=== PATIENT | male | born 1950 | race Caucasian/White ===

== ENCOUNTER 2019-11-12 09:57 | Day surgery (SDC) | payer OTHER ==
[~2019-11-12 09:57] MED LIST: Lactated Ringers 1,000 ML IV SCH; Lidocaine 1%/Sod Bicarbonate in NS 8.4% 1 ML Syringe IDERM PRN; Sodium Chloride 0.9% 10 ML Syringe FLUSH PRN
[2019-11-12] MEDS ORDERED: fentaNYL 100 MCG/2 ML SDV ONE (09:59)
[2019-11-12] MEDS ORDERED: Midazolam 1 MG/ML 2 ML SDV ONE (09:59)
[2019-11-12] MEDS ORDERED: Propofol 200 MG/20 ML SDV ONE (09:59)
[2019-11-12] MEDS ORDERED: Lidocaine 1% 4 ML ONE (10:01)
[2019-11-12] MEDS ORDERED: Bupivacaine 0.5% 10 ML SDV ONE ×2 (10:04→11:12)
--- NOTE | 2019-11-12 10:34 | PCM.PREANE ---
Preanesthetic Assessment - Anesthesia/Transfusion/Family Hx Anesthesia History: Prior Anesthesia Without Reaction Transfusion History: No Prior Transfusion(s) - Review of Systems General: No Symptoms Pulmonary: No Symptoms Cardiovascular: No Symptoms Gastrointestinal: No Symptoms Neurological: No Symptoms Other: Reports: None - Physical Assessment NPO Status Date: 11/11/19 NPO Status Time: 03:00 Vital Signs: 142/75, HR 59, RR 16, SpO2 99% on RA ASA Class: 2 Mental Status: Alert & Oriented x3 Airway Class: Mallampati = 1 Dentition: Reports: Normal Dentition, [place](s), Bridge (on the front) Thyro-Mental Finger Breadths: 3 Mouth Opening Finger Breadths: 3 ROM/Head Extension: Full Lungs: Clear to Auscultation, Normal Respiratory Effort Cardiovascular: Regular Rate, Regular Rhythm - Lab Values: Laboratory Last Values SARS Virus RNA (PCR) Negative (NEGATIVE) 11/10/19 10:45 MRSA (PCR) Negative 11/03/19 13:13 - Allergies Allergies/Adverse Reactions: Allergies Allergy/AdvReac Type Severity Reaction Status Date / Time No Known Allergies Allergy Verified 11/11/19 15:44 - Acknowledgements Anesthesia Type Planned: Regional Block, MAC Pt an Appropriate Candidate for the Planned Anesthesia: Yes Alternatives and Risks of Anesthesia Discussed w Pt/Guardian: Yes Pt/Guardian Understands and Agrees with Anesthesia Plan: Yes PreAnesthesia Questionnaire HEENT History: Reports: Allergic Rhinitis, Impaired Vision, Sinusitis Cardiovascular History: Reports: Hypertension Respiratory History: Reports: Asthma Gastrointestinal History: Reports: Hemorrhoids Genitourinary History: Reports: BPH PAD HAND History: Reports: None Musculoskeletal History: Reports: Other (See Below) Other Musculoskeletal History: hallux valgus Neurological History: Reports: None Psychiatric History: Reports: None Endocrine/Metabolic History: Reports: None Hematologic History: Reports: None Immunologic History: Reports: None Oncologic (Cancer) History: Reports: None Dermatologic History: Reports: None - Infectious Disease History Infectious Disease History: Reports: None - Past Surgical History Head Surgeries/Procedures: Reports: None HEENT Surgical History: Reports: Naso-Sinus Surgery Cardiovascular Surgical History: Reports: None Respiratory Surgical History: Reports: None GI Surgical History: Reports: Colonoscopy, Hernia Repair/Other Female Surgical History: Reports: None Male Surgical History: Reports: None Endocrine Surgical History: Reports: None Neurological Surgical History: Reports: None Musculoskeletal Surgical History: Reports: Other (See Below) Other Musculoskeletal Surgeries/Procedures:: right foot surgery Oncologic Surgical History: Reports: None Dermatological Surgical History: Reports: None - SUBSTANCE USE Smoking Status *Q: Former Smoker Recreational Drug Use History: No - HOME MEDS Home Medications: Home Meds Cyanocobalamin (Vitamin B-12) [Vitamin B-12] 1,000 mcg PO DAILY 11/11/19 [ History] Fluticasone Propionate [Flonase] 1 dose NASBOTH DAILY PRN 11/11/19 [History] Saw [place] 160 mg PO DAILY 11/11/19 [History] Tamsulosin [Flomax] 0.4 mg PO DAILY 11/11/19 [History] Acetaminophen/HYDROcodone [[place] 325-5 MG] 1 - 2 tab PO Q6H PRN #30 tablet 11/11 [Rx] Aspirin 325 mg PO BID #84 tab 11/12/19 [Rx] - CURRENT (IN HOUSE) MEDS Current Meds: Current Medications Lactated Ringer's (Ringers, Lactated) 1,000 mls @ 125 mls/hr IV ASDIRECTED JUSTIN Stop: 11/12/19 23:00 Lidocaine/Sodium Bicarbonate (Buffered Lidocaine 1% In Ns 8.4%) 0.25 ml IDERM ONETIME PRN PRN Reason: Prior to IV Start Stop: 11/12/19 18:00 Sodium Chloride (Saline Flush) 10 ml FLUSH ASDIRECTED PRN PRN Reason: Keep Vein Open Stop: 11/12/19 18:00 Discontinued Medications Bupivacaine HCl (Sensorcaine-Mpf 0.5%) Confirm Administered Dose 10 ml .ROUTE .STK-MED ONE Stop: 11/12/19 10:05 Fentanyl (Sublimaze) Confirm Administered Dose 100 mcg .ROUTE .STK-MED ONE Stop: 11/12/19 10:00 Lidocaine HCl (Xylocaine-Mpf 1%) Confirm Administered Dose 4 mls @ as directed .ROUTE .STK-MED ONE Stop: 11/12/19 10:02 Midazolam HCl (Versed 1 Mg/Ml) Confirm Administered Dose 4 mg .ROUTE .STK-MED ONE Stop: 11/12/19 10:00 Propofol (Diprivan 20 Ml) Confirm Administered Dose 400 mg .ROUTE .STK-MED ONE Stop: 11/12/19 10:00
[2019-11-12] MEDS ORDERED: Bupivacaine 0.25% 10 ML SDV ONE (11:11)
[2019-11-12] MEDS ORDERED: ceFAZolin 1 GM Vial ONE (12:16)
[2019-11-12] MEDS ORDERED: Lactated Ringers 1,000 ML ONE (12:21)
--- NOTE | 2019-11-12 12:40 | PCM.PRNOTE ---
- Free Text/Narrative Note: Requested by Dr. Hugh Tijerina. Dx: Right Hallux rigidus. Surgical Procedure : Distal 1st metatarsal joint fusion Preoperative Treatment: Rt ankle block Patient received explanation about an ankle block, benefits and risks discussed , consent signed. Patient in preoperative area, monitors on, oxygen 2L via nasal cannula, semi-Suazo position, right foot supported by folded blankets a elevated position. Landmarks located and marked with skin marker. Time out done. Left fool cleaned with Chloraprep stick and allowed to dry. 2 mg of Midazolam given. 1st Injection performed behind medial malleolus at tibial nerve in fanning fashion with negative aspiration confirmed. 2nd injection between extensor hallucis longus and extensor digitorum longus tendons at deep peroneal nerve with negative aspiration confirmed. 3rd injection in the ring fashion infiltration at the dorsal surface of the foot at superficial peroneal nerve distribution. 4th injection above medial malleolus around the distribution of saphenous nerve. Additional injection has been performed lateral and medial to the 1st metatarsal bone. Total of 20 mls of 0.5% Bupivacaine PF has been used. Patient has tolerated the procedure well. No signs of local anesthetic systemic toxicity noted. Start 10:49 End 10:58
[2019-11-12] MEDS ORDERED: fentaNYL 100 MCG/2 ML SDV IVPUSH PRN (12:43)
[2019-11-12] MEDS ORDERED: HYDROmorphone 0.5 MG/0.5 ML Syringe IVPUSH PRN (12:43)
--- NOTE | 2019-11-12 13:39 | CR ---
Right 1st toe: 9 fluoroscopic spot views were obtained utilizing C-arm device of the right 1st toe. Study shows placement of plate and screws across the MTP joint of the right 1st toe. Fluoroscopy time is given as 15.5 seconds. Impression: 1. Procedural study as noted above. Diagnostic code #2 This report was dictated in MDT
--- NOTE | 2019-11-12 13:50 | PCM48HPAN ---
Post Anesthesia Note - EVALUATION WITHIN 48HRS OF ANESTHETIC Vital Signs in Normal Range: Yes Patient Participated in Evaluation: Yes Respiratory Function Stable: Yes Airway Patent: Yes Cardiovascular Function Stable: Yes Hydration Status Stable: Yes Pain Control Satisfactory: Yes Nausea and Vomiting Control Satisfactory: Yes Mental Status Recovered: Yes Vital Signs: Last Vital Signs Temp 98.4 F 11/12/19 13:36 Pulse 63 11/12/19 13:36 Resp 15 11/12/19 13:36 BP 114/61 11/12/19 13:36 Pulse Ox 97 11/12/19 13:36
--- NOTE | 2019-11-16 07:19 | PCM.OPNOTE ---
- General Post-Op/Procedure Note Date of Surgery/Procedure: 11/12/19 Operative Procedure(s): right first metatarsal phalangeal joint fusion with great toe exostectomy Pre Op Diagnosis: right foot hallux ragidus with bony exostoses Post-Op Diagnosis: Same Anesthesia Technique: Local, Regional Block Primary Surgeon: Hugh Hernandez Anesthesia Provider: [employer] Radiology Technician: Phuong Chapa EBL in mLs: 5 Complications: None Condition: Good
--- NOTE | 2019-11-17 12:03 | OR ---
DATE OF OPERATION: 11/12/2019 SURGEON: Hugh Hernandez MD OPERATION PERFORMED: Right 1st metatarsophalangeal joint fusion with great toe exostectomy. PREOPERATIVE DIAGNOSIS: Right foot hallux rigidus with exostoses of the distal phalanx. POSTOPERATIVE DIAGNOSIS: Right foot hallux rigidus with exostoses of the distal phalanx. ANESTHESIA: Local MAC with regional ankle block. ANESTHESIA PROVIDER: Shanti Carrington. LOCATION ANALYST: Phuong Chapa PA-C. ESTIMATED BLOOD LOSS: 5 mL. COMPLICATIONS: None. CONDITION: Stable. DESCRIPTION OF PROCEDURE: The patient was identified in the preoperative holding area. Proper site was marked and identified by the surgeon. The patient was taken back to the operating theater where after adequate anesthesia, the patient had a nonsterile tourniquet applied to the right lower extremity. Right lower extremity was then sterilely prepped and draped in the usual sterile fashion after an ankle block had been performed by Anesthesia. At this time, an OR time-out was performed. The patient received 2 g IV Ancef. Right lower extremity was exsanguinated. Tourniquet was insufflated to 225 mmHg. At this time, incision was made over 1st MTP joint. The patient did have to be augmented with 0.25% Marcaine. This was completed, the patient was tolerating well. Incision was made all the way through the capsule and take down of the collateral ligaments undertaken. The patient had had a previous surgery and was noted to have a large amount of scar tissue as well as bony exostoses and osteophytes and it did take a considerable work to remove all the scar tissue to be able to perform the procedure. Once I was able to expose the metatarsal head, a pin was placed in position with fluoroscopy for the Fromberg convex and concave reamer for 1st MTP joint fusion. The concave reamer size 22 and had good bleeding cancellous bone. Osteophytes were taken off that were in excess, and attention was turned to the proximal phalanx. Guidepin again was placed in a center-center position and the concave reamer was then utilized until bleeding cancellous bone. Once this was completed, I placed a 3.0mm compression screw from the metatarsal to the proximal phalanx. C-arm fluoroscopy was utilized making sure that the 1st MTP joint [id number] degrees of dorsiflexion. Once this was found to be in adequate position, the screw was placed and it was found to have good compression of the_ fusion site. A dorsal Chandni locking 1st MTP joint fusion plate was then placed under fluoroscopy in adequate position and non locking and locking screws were placed. The site was found to have good compression at this time. Attention was turned to the patient's exostoses. He did have a small amount of callous mostly exostosis that appeared to be rubbing. At this time, it was decided to do an exostoeses of the excess bone. A lateral incision was made over the medial aspect of the distal phalanx of the right down to the exostosis. C-arm fluoroscopy was then utilized as well. The exostosis was removed. It was found to be removed in entirety. Irrigated through the wound. 2-0 Vicryl was used deep for closure of the capsule, 3-0 Vicryl was used subcutaneously, and 4-0 nylon was used for closure of the skin. The patient was placed in a sterile posterior slab splint and sent to the PACU in stable condition. SPRING /[id number] DIANN
== END 2019-11-12 14:27 | disposition home or self-care (01) ==
LOC: JD.SDS 09:57
PROVIDERS: ATTEND Orthopaedic Surgery
DX: M20.21 Hallux rigidus, right foot (principal); M89.9 Disorder of bone, unspecified; I10 Essential (primary) hypertension; E78.5 Hyperlipidemia, unspecified; J45.909 Unspecified asthma, uncomplicated; Z87.891 Personal history of nicotine dependence; Z79.51 Long term (current) use of inhaled steroids
CPT/HCPCS: 28124; 28289; 76000; 87635; 87641; C1713; J0690; J2001; J2250; J2704; J3010; J3490; J7120; 01480; 64450; U0002

== ENCOUNTER 2020-11-29 12:27 | Day surgery (SDC) | payer OTHER, MEDICARE ==
[~2020-11-29 12:27] MED LIST changes: +Cefuroxime 10 MG/ML SYRINGE EYERT SCH; -Lactated Ringers 1,000 ML IV SCH; +Lidocaine 1% PF 2 ML SDV INJECT SCH; -Lidocaine 1%/Sod Bicarbonate in NS 8.4% 1 ML Syringe IDERM PRN; +Pilocarpine 4% Ophth Soln 15 ML Bot EYERT SCH; -Sodium Chloride 0.9% 10 ML Syringe FLUSH PRN
[2020-11-29] MEDS: Polymyxin B/Trimethoprim 10 ML Bottle EYERT SCH ×3 (12:53→14:39)
[2020-11-29] MEDS: Brimonidine 0.2% Ophth Soln 5 ML Bottle EYERT SCH ×3 (12:58→14:39)
[2020-11-29] MEDS: Phenylephrine 2.5% Ophth Soln 2 ML Bot EYERT SCH ×5 (13:03→14:22)
[2020-11-29] MEDS: Tropicamide 1% Ophth Soln 15 ML Bottle EYERT SCH ×4 (13:08→14:04)
--- NOTE | 2020-11-29 13:40 | PCM.PREANE ---
Preanesthetic Assessment - Procedure Proposed Procedure: cataract right - Anesthesia/Transfusion/Family Hx Anesthesia History: Prior Anesthesia Without Reaction Family History of Anesthesia Reaction: No Transfusion History: No Prior Transfusion(s) - Review of Systems General: No Symptoms Pulmonary: No Symptoms Cardiovascular: No Symptoms Gastrointestinal: No Symptoms Neurological: No Symptoms Other: Reports: None - Physical Assessment NPO Status Date: 11/28/20 NPO Status Time: 19:00 Vital Signs: 140/82 53 96% 16 98.3 Height: 5 ft 10 in Weight: 79.832 kg ASA Class: 2 Mental Status: Alert & Oriented x3 Airway Class: Mallampati = 1 Dentition: Reports: Partial (partial top) Thyro-Mental Finger Breadths: 3 Mouth Opening Finger Breadths: 3 ROM/Head Extension: Full Lungs: Clear to Auscultation, Normal Respiratory Effort Cardiovascular: Regular Rate, Regular Rhythm - Allergies Allergies/Adverse Reactions: Allergies Allergy/AdvReac Type Severity Reaction Status Date / Time No Known Allergies Allergy Verified 11/28/20 11:03 - Blood Blood Available: No - Acknowledgements Anesthesia Type Planned: MAC Pt an Appropriate Candidate for the Planned Anesthesia: Yes Alternatives and Risks of Anesthesia Discussed w Pt/Guardian: Yes Pt/Guardian Understands and Agrees with Anesthesia Plan: Yes PreAnesthesia Questionnaire HEENT History: Reports: Allergic Rhinitis, Impaired Vision, Sinusitis Cardiovascular History: Reports: Hypertension (denies) Respiratory History: Reports: Asthma (years ago) Gastrointestinal History: Reports: Hemorrhoids Genitourinary History: Reports: BPH 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 Musculoskeletal History: Reports: Other (See Below) Other Musculoskeletal History: hallux valgus Neurological History: Reports: None Psychiatric History: Reports: None Endocrine/Metabolic History: Reports: None Hematologic History: Reports: None Immunologic History: Reports: None Oncologic (Cancer) History: Reports: None Dermatologic History: Reports: None - Infectious Disease History Infectious Disease History: Reports: None - Past Surgical History Head Surgeries/Procedures: Reports: None HEENT Surgical History: Reports: Naso-Sinus Surgery Cardiovascular Surgical History: Reports: None Respiratory Surgical History: Reports: None GI Surgical History: Reports: Colonoscopy, Hernia Repair/Other Female Surgical History: Reports: None Male Surgical History: Reports: None Endocrine Surgical History: Reports: None Neurological Surgical History: Reports: None Musculoskeletal Surgical History: Reports: Other (See Below) Other Musculoskeletal Surgeries/Procedures:: right foot surgery Oncologic Surgical History: Reports: None Dermatological Surgical History: Reports: None - SUBSTANCE USE Tobacco Use Status *Q: Former Tobacco User Tobacco Use Within Last Twelve Months: No Second Hand Smoke Exposure: No Days Per Week of Alcohol Use: 6 Number of Drinks Per Day: 1 Total Drinks Per Week: 6 Recreational Drug Use History: No - HOME MEDS Home Medications: Home Meds Cyanocobalamin (Vitamin B-12) [Vitamin B-12] 1,000 mcg PO DAILY 11/11/19 [History] Fluticasone Propionate [Flonase] 1 dose NASBOTH DAILY PRN 11/11/19 [History] Saw [place] 160 mg PO DAILY 11/11/19 [History] Tamsulosin [Flomax] 0.4 mg PO DAILY 11/11/19 [History] - CURRENT (IN HOUSE) MEDS Current Meds: Current Medications Brimonidine Tartrate (Brimonidine 0.2% Ophth Soln 5 Ml Bottle) 0 ml EYERT ASDIRECTED JUSTIN Stop: 11/29/20 18:00 Last Admin: 11/29/20 12:58 Dose: 1 drop Documented by: Cefuroxime Sodium (Cefuroxime 10 Mg/Ml Syringe) 0 mg EYERT ASDIRECTED JUSTIN Stop: 11/29/20 18:00 Lidocaine HCl (Lidocaine 1% Pf 2 Ml Sdv) 0 ml INJECT ASDIRECTED JUSTIN Stop: 11/29/20 18:00 Phenylephrine HCl (Phenylephrine 2.5% Ophth Soln 2 Ml Bot) 0 ml EYERT ASDIRECTED JUSTIN Stop: 11/29/20 18:00 Last Admin: 11/29/20 13:28 Dose: 1 drop Documented by: Pilocarpine HCl (Pilocarpine 4% Ophth Soln 15 Ml Bot) 0 ml EYERT ASDIRECTED JUSTIN Stop: 11/29/20 18:00 Polymyxin/Trimethoprim Sulfate (Polymyxin B/Trimethoprim 10 Ml Bottle) 0 ml EYERT ASDIRECTED JUSTIN Stop: 11/29/20 18:00 Last Admin: 11/29/20 12:53 Dose: 1 drop Documented by: Tetracaine HCl (Tetracaine Hcl/Pf 0.5% 4 Ml Bottle) 0 ml EYEBOTH ASDIRECTED JUSTIN Stop: 11/29/20 18:00 Tropicamide (Tropicamide 1% Ophth Soln 15 Ml Bottle) 0 ml EYERT ASDIRECTED JUSTIN Stop: 11/29/20 18:00 Last Admin: 11/29/20 13:33 Dose: 1 drop Documented by:
[2020-11-29] MEDS: Tetracaine HCl/PF 0.5% 4 ML Bottle EYEBOTH SCH ×4 (14:11→14:32)
--- NOTE | 2020-11-29 14:41 | PCM48HPAN ---
Post Anesthesia Note - EVALUATION WITHIN 48HRS OF ANESTHETIC Vital Signs in Normal Range: Yes Patient Participated in Evaluation: Yes Respiratory Function Stable: Yes Airway Patent: Yes Cardiovascular Function Stable: Yes Hydration Status Stable: Yes Pain Control Satisfactory: Yes Nausea and Vomiting Control Satisfactory: Yes Mental Status Recovered: Yes Vital Signs: Last Vital Signs Temp 36.8 C 11/29/20 12:30 Pulse 53 L 11/29/20 12:30 Resp 16 11/29/20 12:30 BP 140/82 11/29/20 12:30 Pulse Ox 96 11/29/20 12:30
== END 2020-11-29 14:50 | disposition home or self-care (01) ==
LOC: JD.SDS 12:27
PROVIDERS: ATTEND Ophthalmology
DX: H25.813 Combined forms of age-related cataract, bilateral (principal); I10 Essential (primary) hypertension; Z98.890 Other specified postprocedural states; Z87.891 Personal history of nicotine dependence; Z79.899 Other long term (current) drug therapy
CPT/HCPCS: 66984; J0697; C1780

== ENCOUNTER 2020-12-27 07:18 | Day surgery (SDC) | payer OTHER, MEDICARE ==
[2020-12-27] MEDS: Polymyxin B/Trimethoprim 10 ML Bottle EYELF SCH ×4 (07:31→09:30)
[2020-12-27] MEDS: Brimonidine 0.2% Ophth Soln 5 ML Bottle EYELF SCH ×4 (07:36→09:30)
--- NOTE | 2020-12-27 07:39 | PCM.PREANE ---
Preanesthetic Assessment - Anesthesia/Transfusion/Family Hx Anesthesia History: Prior Anesthesia Without Reaction Transfusion History: No Prior Transfusion(s) - Review of Systems General: No Symptoms Pulmonary: No Symptoms Cardiovascular: No Symptoms Gastrointestinal: No Symptoms Neurological: No Symptoms Other: Reports: None - Physical Assessment NPO Status Date: 12/26/20 NPO Status Time: 17:00 Height: 1.8 m Weight: 79.832 kg ASA Class: 2 Mental Status: Alert & Oriented x3 Airway Class: Mallampati = 2 Dentition: Reports: Normal Dentition Thyro-Mental Finger Breadths: 3 Mouth Opening Finger Breadths: 3 ROM/Head Extension: Full Lungs: Clear to Auscultation, Normal Respiratory Effort Cardiovascular: Regular Rate, Regular Rhythm - Allergies Allergies/Adverse Reactions: Allergies Allergy/AdvReac Type Severity Reaction Status Date / Time No Known Allergies Allergy Verified 12/26/20 09:34 - Blood Blood Available: No Product(s) Available: None - Acknowledgements Anesthesia Type Planned: MAC Pt an Appropriate Candidate for the Planned Anesthesia: Yes Alternatives and Risks of Anesthesia Discussed w Pt/Guardian: Yes Pt/Guardian Understands and Agrees with Anesthesia Plan: Yes PreAnesthesia Questionnaire HEENT History: Reports: Allergic Rhinitis, Impaired Vision, Sinusitis Cardiovascular History: Reports: Hypertension Respiratory History: Reports: Asthma Gastrointestinal History: Reports: Hemorrhoids Genitourinary History: Reports: BPH 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 Musculoskeletal History: Reports: Other (See Below) Other Musculoskeletal History: hallux valgus Neurological History: Reports: None Psychiatric History: Reports: None Endocrine/Metabolic History: Reports: None Hematologic History: Reports: None Immunologic History: Reports: None Oncologic (Cancer) History: Reports: None Dermatologic History: Reports: None - Infectious Disease History Infectious Disease History: Reports: None - Past Surgical History Head Surgeries/Procedures: Reports: None HEENT Surgical History: Reports: Naso-Sinus Surgery Cardiovascular Surgical History: Reports: None Respiratory Surgical History: Reports: None GI Surgical History: Reports: Colonoscopy, Hernia Repair/Other Female Surgical History: Reports: None Male Surgical History: Reports: None Endocrine Surgical History: Reports: None Neurological Surgical History: Reports: None Musculoskeletal Surgical History: Reports: Other (See Below) Other Musculoskeletal Surgeries/Procedures:: right foot surgery Oncologic Surgical History: Reports: None Dermatological Surgical History: Reports: None - SUBSTANCE USE Tobacco Use Status *Q: Former Tobacco User Recreational Drug Use History: No - HOME MEDS Home Medications: Home Meds Cyanocobalamin (Vitamin B-12) [Vitamin B-12] 1,000 mcg PO DAILY 11/11/19 [History] Fluticasone Propionate [Flonase] 1 dose NASBOTH DAILY PRN 11/11/19 [History] Saw [place] 160 mg PO DAILY 11/11/19 [History] Tamsulosin [Flomax] 0.4 mg PO DAILY 11/11/19 [History] - CURRENT (IN HOUSE) MEDS Current Meds: Current Medications Brimonidine Tartrate (Brimonidine 0.2% Ophth Soln 5 Ml Bottle) 0 ml EYELF ASDIRECTED JUSTIN Stop: 12/27/20 16:00 Cefuroxime Sodium (Cefuroxime 10 Mg/Ml Syringe) 0 mg EYELF ASDIRECTED JUSTIN Stop: 12/27/20 16:00 Lidocaine HCl (Lidocaine 1% Pf 2 Ml Sdv) 0 ml INJECT ASDIRECTED JUSTIN Stop: 12/27/20 16:00 Phenylephrine HCl (Phenylephrine 2.5% Ophth Soln 2 Ml Bot) 0 ml EYELF ASDIRECTED JUSTIN Stop: 12/27/20 16:00 Pilocarpine HCl (Piloc[place] 4% Ophth Soln 15 Ml Bot) 0 ml EYELF ASDIRECTED JUSTIN Stop: 12/27/20 16:00 Polymyxin/Trimethoprim Sulfate (Polymyxin B/Trimethoprim 10 Ml Bottle) 0 ml EYELF ASDIRECTED JUSTIN Stop: 12/27/20 16:00 Last Admin: 12/27/20 07:31 Dose: 1 drop Documented by: Tetracaine HCl (Tetracaine Hcl/Pf 0.5% 4 Ml Bottle) 0 ml EYEBOTH ASDIRECTED JUSTIN Stop: 12/27/20 16:00 Tropicamide (Tropicamide 1% Ophth Soln 15 Ml Bottle) 0 ml EYELF ASDIRECTED JUSTIN Stop: 12/27/20 16:00
[2020-12-27] MEDS: Phenylephrine 2.5% Ophth Soln 2 ML Bot EYELF SCH ×6 (07:40→09:09)
[2020-12-27] MEDS: Tropicamide 1% Ophth Soln 15 ML Bottle EYELF SCH ×4 (07:46→08:37)
[2020-12-27] MEDS: Tetracaine HCl/PF 0.5% 4 ML Bottle EYEBOTH SCH ×3 (08:31→09:15)
[2020-12-27] MEDS: Lidocaine 1% PF 2 ML SDV INJECT SCH ×2 (08:32→09:16)
[2020-12-27] MEDS: Cefuroxime 10 MG/ML SYRINGE EYELF SCH ×2 (08:32→09:28)
[2020-12-27] MEDS: Pilocarpine 4% Ophth Soln 15 ML Bot EYELF SCH ×2 (08:33→09:30)
--- NOTE | 2020-12-27 09:31 | PCM48HPAN ---
Post Anesthesia Note - EVALUATION WITHIN 48HRS OF ANESTHETIC Vital Signs in Normal Range: Yes Patient Participated in Evaluation: Yes Respiratory Function Stable: Yes Airway Patent: Yes Cardiovascular Function Stable: Yes Hydration Status Stable: Yes Pain Control Satisfactory: Yes Nausea and Vomiting Control Satisfactory: Yes Mental Status Recovered: Yes Vital Signs: Last Vital Signs Temp 36.9 C 12/27/20 07:15 Pulse 59 L 12/27/20 07:15 Resp 18 12/27/20 07:15 BP 141/69 H 12/27/20 07:15 Pulse Ox 98 12/27/20 07:15
== END 2020-12-27 09:40 | disposition home or self-care (01) ==
LOC: JD.SDS 07:18
PROVIDERS: ATTEND Ophthalmology
DX: H25.813 Combined forms of age-related cataract, bilateral (principal); H40.053 Ocular hypertension, bilateral; H16.103 Unspecified superficial keratitis, bilateral; H16.223 Keratoconjunctivitis sicca, not specified as Sjogren's, bilateral; H02.834 Dermatochalasis of left upper eyelid; H02.831 Dermatochalasis of right upper eyelid; I10 Essential (primary) hypertension; Z96.1 Presence of intraocular lens; Z79.899 Other long term (current) drug therapy
CPT/HCPCS: 66984; J0697; C1780

== ENCOUNTER 2021-08-17 06:39 | Day surgery (SDC) | payer OTHER, MEDICARE ==
[2021-08-17] MEDS ORDERED: Propofol 200 MG/20 ML SDV ONE (06:43)
[2021-08-17] MEDS ORDERED: Lidocaine 1% 4 ML ONE (06:43)
[2021-08-17] MEDS ORDERED: Lidocaine 1%/Sod Bicarbonate in NS 8.4% 1 ML Syringe IDERM PRN (07:21)
[2021-08-17] MEDS ORDERED: Lactated Ringers 1,000 ML IV SCH (07:30)
[2021-08-17] MEDS ORDERED: Sodium Chloride 0.9% 10 ML Syringe FLUSH SCH (09:00)
== END 2021-08-17 09:27 | disposition home or self-care (01) ==
LOC: JD.SDS 06:39
PROVIDERS: ATTEND Surgery
DX: Z12.11 Encounter for screening for malignant neoplasm of colon (principal); K57.30 Diverticulosis of large intestine without perforation or abscess without bleeding; K64.8 Other hemorrhoids; N40.0 Benign prostatic hyperplasia without lower urinary tract symptoms; I10 Essential (primary) hypertension; J45.909 Unspecified asthma, uncomplicated; Z79.82 Long term (current) use of aspirin; Z79.899 Other long term (current) drug therapy; Z98.890 Other specified postprocedural states; Z87.891 Personal history of nicotine dependence
CPT/HCPCS: 45378; J2704; J7120; 00812; 99100